=== PATIENT | female | born 1990 | race Caucasian/White ===

== ENCOUNTER 2020-02-24 06:13 | Inpatient (IN) ==
[2020-02-24] MEDS ORDERED: ONDANSETRON 4 MG TAB.RAPDIS PO PRN (06:20)
[2020-02-24] MEDS ORDERED: BUTORPHANOL TARTRATE 2 MG/ML VIAL IV PRN ×2 (06:20)
[2020-02-24] MEDS ORDERED: RINGER'S SOLUTION,LACTATED 1,000 ML IV ONE (06:20)
[2020-02-24] MEDS ORDERED: OXYTOCIN/0.9 % SODIUM CHLORIDE 30 UNITS/500 ML BAG IV ONE ×2 (06:20→18:59)
[2020-02-24] MEDS ORDERED: MISOPROSTOL 100 MCG TABLET VG PRN (06:20)
[2020-02-24] MEDS ORDERED: LIDOCAINE HCL 50 ML VIAL PERI PRN (06:20)
[2020-02-24] MEDS: RINGER'S SOLUTION,LACTATED 1,000 ML IV PRN ×2 (16:01→18:18)
--- NOTE | 2020-02-24 16:22 | HP ---
Chief Complaint - Chief Complaint Date of Service: 02/24/20 Time of Service: 16:16 Chief Complaint: Patient presents for medical induction of labor History of Present Illness: 29 year old at 40w 1d who presents to labor and delivery for a medical IOL due to post due date. She reports regular ctx. Denies vb or lof. Fetus is active. Medical History (Last Reviewed 02/24/20 @ 16:18 by Mehreen Fraser MD) Heart murmur (Resolved) Onset Date: 08/09/17 MRSA (methicillin resistant staph aureus) culture positive (Resolved) Surgical History: Surgical History (Last Reviewed 02/24/20 @ 16:18 by Mehreen Fraser MD) [place] teeth extracted Onset Date: 01/15/18 Family History: Family History (Last Reviewed 02/24/20 @ 16:18 by Mehreen Fraser MD) Grandmother , paternal Cancer breast cancer Social History: (Last Reviewed 02/24/20 @ 16:18 by Mehreen Fraser MD) Social History: adopted: No Marital status: Single household members: family, significant other number of children: 1 current occupational status: employed current occupation: [employer] Highest education level completed: Associate degree: 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 Service: No Tobacco: Smoking Status: Current every day smoker tobacco type: cigarettes Alcohol: alcohol intake: former Substance Use: substance use type: does not use Dietary Habits: caffeine: Yes caffeine comment: 1-2 Type: coffee Exercise: Physical activity type: none Review Of Systems (GEN) - Review of Systems Generalized/Overall Review: Present: No Symptoms Reported Genitourinary: Present: Other - contractions Misc: All systems neg except as marked Allergies/Adverse Reactions: Allergies Allergy/AdvReac Type Severity Reaction Status Date / Time codeine Allergy Severe hives Verified 02/23/20 09:02 Home Medications: HOME MEDICATIONS prasterone (dhea) 25 mg capsule 25 mg PO DAILY 08/21/19 [Last Taken Unknown] breast pump See Rx Instructions .ROUTE .MEDSUPPLY #1 ea 12/31/19 [Last Taken Unknown] Ferrous Sulfate 1 mg PO DAILY 02/24/20 [Last Taken Unknown] Vits96/Iron Fum/Folic [ S] 1 tab PO DAILY 02/24/20 [Last Taken Unknown] Exam - Exam Vital Signs: Vital Signs - Last Taken Temp 36.9 C 02/24/20 06:46 Pulse 111 H 02/24/20 06:46 Resp 18 02/24/20 06:46 BP 123/80 02/24/20 06:46 Pulse Ox 98 02/24/20 06:46 Constitutional: Present: Alert, Oriented x3, Cooperative, No distress ENT Exam: Present: hearing grossly normal Neck: Present: normal inspection Respiratory: Present: lungs clear, normal breath sounds Cardiovascular/Chest: Present: regular rate, rhythm Abdomen: Present: soft, nontender, nondistended /Rectal: Present: Other - cvx 4/60/-2 AROM for a large amount of clear fluid Extremity: Present: non-tender, no calf tenderness Skin Exam: Present: normal color, warm/dry, no cyanosis Neurologic: Present: alert, normal mood/affect, oriented x 3 Appearance: Present: appropriate appearance, appropriate insight Eye contact: Present: cooperative, good eye contact, normal speech Thoughts: Present: normal thought pattern Diagnostic Studies: Laboratory Results Blood Type O Negative 02/24/20 06:35 Antibody Screen Positive 02/24/20 06:35 Antibody Identification Anti-D 02/24/20 06:35 Assessment/Plan - Narrative Narrative: 29 year old at 40w 1d Medical IOL due to post due date: the patient has received one dose of cytotec. Patient started on pitocin at 2 milliunits per minute. AROM done. Rh negative: s/p Rhogam. Cord blood will be collected Smoker History heart murmur History of MRSA GBS negative: prophylaxis not indicated
[2020-02-24] MEDS ORDERED: NALOXONE HCL 1 MG/1 ML SYRG IV PRN (17:02)
[2020-02-24] MEDS ORDERED: BUPIVACAINE HCL/0.9 % NACL/PF 250 ML EP PRN (17:02)
[2020-02-24] MEDS ORDERED: ONDANSETRON HCL/PF 2 MG/ML VIAL IV PRN (17:02)
[2020-02-24] MEDS ORDERED: fentaNYL CITRATE/PF 50 MCG/ML AMPUL IT SCH (17:15)
--- NOTE | 2020-02-24 17:25 | ANES ---
Anesthesia Pre Procedure Eval Vitals/Labs: Last Vital Signs Temp 36.9 C 02/24/20 06:46 Pulse 111 H 02/24/20 06:46 Resp 18 02/24/20 06:46 BP 123/80 02/24/20 06:46 Pulse Ox 98 02/24/20 06:46 HOME MEDICATIONS prasterone (dhea) 25 mg capsule 25 mg PO DAILY 08/21/19 [Last Taken Unknown] breast pump See Rx Instructions .ROUTE .MEDSUPPLY #1 ea 12/31/19 [Last Taken Unknown] Ferrous Sulfate 1 mg PO DAILY 02/24/20 [Last Taken Unknown] Vits96/Iron Fum/Folic [ S] 1 tab PO DAILY 02/24/20 [Last Taken Unknown] Allergies/Adverse Reactions: Allergies Allergy/AdvReac Type Severity Reaction Status Date / Time codeine Allergy Severe hives Verified 02/23/20 09:02 - Planned Procedure Planned Procedure: INDUCTION POST DATES 40 WKS & 2 DAYS Medication List Reviewed:: Yes Allergies Verified: Yes Medical History (Last Reviewed 02/24/20 @ 17:23 by Neal Lombardo CRNA) Heart murmur (Resolved) Onset Date: 08/09/17 MRSA (methicillin resistant staph aureus) culture positive (Resolved) Surgical History (Last Reviewed 02/24/20 @ 17:23 by Neal Lombardo CRNA) [place] teeth extracted Onset Date: 01/15/18 Family History (Last Reviewed 02/24/20 @ 17:24 by Neal Lombardo CRNA) Grandmother , paternal Cancer breast cancer - Family Anesthesia History Family History:: no untoward family reactions to anesthesia, no familial bleeding tendencies, no family history of clotting disorders, no family history of premature - Airway/Neck/Teeth Within Normal Limits:: Yes Teeth Condition: intact Neck Exam: full range of motion Mallampatti Score: 2 Thyromental (T-M) distance: > 6 cm Mandibulo Hyoid distance: > 3 cm - Respiratory Respiratory Physical: lungs clear Sleep Apnea currently treated: No Sleep Apnea by current assessment: No - Cardiovascular Tolerate Activity: Fair - Gastrointestinal NPO since: 2399 - Anesthesia Assessment and Plan ASA Class: PS, II, E Anesthesia Type Plan: Epidural - CSE for labor analgesia
--- NOTE | 2020-02-24 17:41 | ANES ---
Post Anesthesia Discharge - Transfer of Care Transfer of Care handoff given to nurse: Yes - Discharge from PACU Discharge from PACU when meets criteria: Yes - Comfortable post CSE
--- NOTE | 2020-02-24 17:43 | ANES ---
Anesthesia Procedure Note Procedure Note: ANESTHESIA PROCEDURE NOTE Date of Procedure: 02/24/2020 Time of procedure: 1725. Performed by: DERIAN Pat CRNA, MSN Advertising Campaign Manager: Tanja Bah RN. Preprocedure diagnosis: Active labor, labor pain. Post procedure diagnosis: Same. Procedure:Epidural for labor analgesia L3-4. Indications: Labor pain. Findings: See below. Details of the procedure: The patient was placed on the side of the bed in sitting positionand prepped with DuraPrep then draped in a sterile fashion. Lidocaine 1% was infiltrated to the skin and subcutaneous tissues at the level of the L3-4 interspace. An 18-gauge Touhy needle was used to approach the epidural space with loss of resistance technique. Once loss of resistance was achieved a 27-gauge spinal needle was passed through the epidural needle and CSF was contacted. After CSF returned, 20 mcg of fentanyl was injected in the spinal needle was removed the epidural catheter was then threaded approximately 4 cm in the epidural needle was removed. The catheter was taped in place and after careful aspiration 3 mL of 1.5% lidocaine with 1-200,000 epinephrine was injected without change in maternal heart rate or sensorium. . EBL: Minimal. Fluids: N/A. Specimen: N/A. Post procedure condition: The patient tolerated the procedure well with good re lief. No complications were noted. Thank you for this consultation. Neal Lombardo CRNA, DERIAN, MSN
--- NOTE | 2020-02-24 17:53 | ANES ---
Post Anesthesia Assessment - Vital Signs Vitals: Last Vital Signs Temp 36.9 C 02/24/20 06:46 Pulse 111 H 02/24/20 06:46 Resp 18 02/24/20 06:46 BP 123/80 02/24/20 06:46 Pulse Ox 98 02/24/20 06:46 Airway Patency: Normal - Mental Status Level Of Consciousness: Awake, Alert, Appropriate - Pain Level Pain Score: 0 - N/V Assessment Nausea/Vomiting Presence: None Dehydration:: No
--- NOTE | 2020-02-24 18:58 | OR ---
Operative Report - Dictated Report Narrative: Date of delivery: 02/24/2020 Time of delivery: 1839 Gender: female weight: 3719 grams APGARS: 9/10 Procedure: Description of the procedure: The patient is a 29 year old at 40w 1d who presented to labor and delivery for a medical IOL due to post due date. She received one dose of cytotec then was started on pitocin and AROM was done. She progressed to complete dilation. She delivered a viable female in TONE presentation with the hand presenting as well (compound presentation). The shoulders delivered without any difficulty followed by the rest of the . Cord clamping was delayed for 60 seconds since the was vigorous. The cord was clamped and cut. Cord blood was collected. The placenta was delivered by expression and appeared intact. A second degree perineal laceration was repaired using 2-0 vicryl. EBL: 300 mL Complications: none Specimens: cord blood History for Definition: * The number of deliveries resulting in a live the patient experienced prior to current hospitalization * The previous delivery of live twins or any live multiple gestation is considered one live event. *If primagravida or nulliparous is documented select zero for the number of previous live births. Live Events: 1
[2020-02-24] MEDS ORDERED: BENZOCAINE/MENTHOL 81 SPRAY CAN TP PRN (18:59)
[2020-02-24] MEDS ORDERED: BISACODYL 10 MG SUPP.RECT RC PRN (18:59)
[2020-02-24] MEDS ORDERED: IBUPROFEN 800 MG TABLET PO PRN (18:59)
[2020-02-24] MEDS ORDERED: GLYCERIN/WITCH HAZEL LEAF 40 APPL BOX TP PRN (18:59)
[2020-02-24] MEDS ORDERED: SENNOSIDES 8.6 MG TABLET PO PRN (18:59)
[2020-02-24] MEDS ORDERED: HYDROcodone/ACETAMINOPHEN 1 EACH TABLET PO PRN ×2 (18:59)
[2020-02-24] MEDS ORDERED: HYDROCORTISONE 30 APPL TUBE TP PRN (18:59)
[2020-02-24] MEDS ORDERED: diphenhydrAMINE HCL 25 MG CAPSULE PO PRN (18:59)
[2020-02-25] MEDS: DOCUSATE SODIUM 100 MG CAPSULE PO SCH ×2 (01:37→10:03)
--- NOTE | 2020-02-25 08:34 | PN ---
Subjective - Date and Time Seen Date: 02/25/20 Time: 08:33 Subjective Narrative: Patient without complaints Objective Objective Narrative: See vital signs - Review of Systems Generalized/Overall Review: Reports: No Symptoms Reported Misc: All systems neg except as marked - Vitals Vitals: Last Vital Signs Temp 36.5 C 02/25/20 06:40 Pulse 83 02/25/20 06:40 Resp 16 02/25/20 06:40 BP 110/66 02/25/20 06:40 Pulse Ox 97 02/24/20 23:55 - Exam Constitutional: Present: Alert, Oriented x3, Cooperative, No distress Abdomen: Present: soft, nontender, nondistended - fundus is firm Extremity: Present: non-tender, no calf tenderness Skin Exam: Present: normal color, warm/dry, no cyanosis Neurologic: Present: alert, normal mood/affect, oriented x 3 Appearance: Present: appropriate appearance, appropriate insight, neat, no memory impairment Eye contact: Present: cooperative, good eye contact, normal speech Thoughts: Present: normal thought pattern Cauti Physician Documentation - Urinary Catheter Management Urethral (Kumar) Urethral Indwelling: No Date of Insertion: 02/24/20 Time of Insertion: 18:10 Date of Removal: 02/24/20 Time of Removal: 18:35 Assessment/Plan Plan Narrative: PPD 1 s/p Doing well Discharge today Follow-up in 6 weeks or sooner for any other concerns
[2020-02-25] MEDS ORDERED: PRENATAL VITS96/IRON FUM/FOLIC 1 TAB TABLET PO SCH (09:00)
[2020-02-25 17:17] VITALS: BP 111/69
== END 2020-02-25 19:15 | disposition home or self-care (01) | DRG 807 ==
LOC: OB 06:13
PROVIDERS: ADMIT Obstetrics & Gynecology; ATTEND Obstetrics & Gynecology